=== PATIENT | female | born 1990 | race Caucasian/White ===

== ENCOUNTER → 2019-05-15 09:50 | Outpatient (BNVA) | payer BC, SELFPAY | PROVIDERS: Visit Provider Obstetrics & Gynecology Female Pelvic Medicine and Reconstructive Surgery | DX: Z11.3 Encounter for screening for infections with a predominantly sexual mode of transmission (principal); Z70.8 Other sex counseling | CPT/HCPCS: 81003; 87491; 87591; 88175 ==

== ENCOUNTER → 2020-08-15 10:40 | Outpatient (BNVA) | payer BC, SELFPAY | PROVIDERS: Visit Provider Nurse Practitioner Women's Health | DX: Z01.419 Encounter for gynecological examination (general) (routine) without abnormal findings (principal); Z11.3 Encounter for screening for infections with a predominantly sexual mode of transmission; Z30.9 Encounter for contraceptive management, unspecified | CPT/HCPCS: 87491; 87591; 87661; 88175 ==

== ENCOUNTER 2020-09-25 13:47 | Emergency (ER) | payer BC, SELFPAY ==
[2020-09-25 13:57] VITALS: BP 134/91; PULSE 83; RESP 19; TEMP 37.5; O2SAT 95; BMI 40.2
--- NOTE | 2020-09-25 14:48 | W.ED.EXTPRO ---
HPI - Extremity Problem General: Chief complaint: Extremity Injury, Lower Stated complaint: R heel pain Time Seen by Provider: 09/25/20 14:42 History of Present Illness: HPI Narrative: Patient is a 30-year-old female comes to the ED with right heel pain. Patient says that yesterday she was sliding down a water slide when she went into the pool it was, shallow and her right heel hit the concrete bottom. Since injury she has had pain in her right heel especially when she puts any weight on it. She says the pain is an 8 out of 10 when she puts weight on it and it is 0 out of 10 if she is at rest. Patient has full range of motion still throughout her foot and ankle. Denies any other injury. Associated symptoms: Deny chest pain, fever(s) or rash Review of Systems Const: Denies: fever(s), chills or fatigue Eyes: Denies: change in vision or eye discomfort ENMT: Denies: throat pain, odynophagia, nasal discharge or nasal congestion Card: Denies: chest pain, palpitations, edema, swelling of feet/ankles, dyspnea on exertion or orthopnea Resp: Denies: dyspnea, productive cough or non-productive cough GI: Denies: abdominal pain, nausea, vomiting, diarrhea, constipation or hematochezia : Denies: flank pain, dysuria or hematuria Musc: Reports: extremity pain (right heel); Denies: neck pain, back pain or extremity swelling Skin/Breast: Denies: rash or new lesions Neuro: Denies: headache(s), numbness in extremities or weakness in extremities [facility] ED PFSH: Medical History No pertinent past medical history neg hx: hypertension, diabetes, thyroid, DVT/PE PCP: none Surgical History No pertinent past surgical history Family History Mother Hypertension Denies family history of Colon cancer Ovarian cancer Diabetes Clotting disorder Heart disease Hyperlipidemia Breast cancer Anesthesia complication Family history of thyroid problem Bleeding disorder Uterine cancer Stroke Physical Exam Const: COMMON NORMALS: no acute distress, patient oriented x3, healthy appearing and alert HENMT: COMMON NORMALS: normocephalic HEAD & SCALP: normocephalic MOUTH: Normal oral and palatal mucosa present THROAT: posterior oropharynx normal and uvula midline Neck/C-Spine: COMMON NORMALS: supple GENERAL: Yes normal visual inspection Resp: COMMON NORMALS: normal respiratory effort, No retractions, No use of accessory muscles and clear to auscultation bilaterally AUSCULTATION: clear to auscultation bilaterally Cardio: COMMON NORMALS: regular rate, regular rhythm, S1 normal heart sound present, S2 normal heart sound present, No gallops present (Cardio), No clicks present (Cardio), No murmurs present (Cardio) and Peripheral pulses 2+ throughout RATE: regular rate RHYTHM: regular rhythm HEART SOUNDS: S1 normal heart sound present and S2 normal heart sound present PERIPHERAL PULSES: Peripheral pulses 2+ throughout GI: COMMON NORMALS: Normal to inspection, nondistended, normoactive bowel sounds present, Soft to palpation, non-tender and no masses PALPATION: Yes Soft to palpation : COMMON NORMALS: Yes no CVA tenderness BLADDER/KIDNEY EXAM: Yes no CVA tenderness Back/Pelvis: COMMON NORMALS: no CVA tenderness Extremity: NARRATIVE EXTREMITY EXAM: Right foot?no deformity or swelling seen. Patient had tenderness over heel. Neurovascular tact distally. GENERAL: Yes normal exam except as noted Neuro: COMMON NORMALS: patient oriented x3 and moves all extremities SENSORIUM/ORIENTATION: Yes alert Skin: GENERAL SKIN EXAM: dry skin Course Vital Signs: Vital signs: Vital Signs Temperature 99.5 F 09/25/20 13:57 Pulse Rate 83 09/25/20 13:57 Respiratory Rate 19 H 09/25/20 13:57 Blood Pressure 134/91 09/25/20 13:57 Pulse Oximetry 95 09/25/20 13:57 MDM - Extremity (Nontraumatic) Imaging Data^: Xray Ortho: Attestation: I personally reviewed and interpreted this imaging study as follows: Radiologist's impression: [address] [address] XRay Report Signed Patient: Karis Myles Unit #: [id number] : 1990 Age/Sex: 30 / F ADM Date: 09/25/20 Loc: ER Room/Bed: Attending Dr: Ordering Provider/Ordering MD: Jerson Evans Date of Service: 09/25/20 Procedure(s): XR foot RT min 3V* 46627 Accession Number(s): [id number] Report Number: [id number] WS: [id number] Right foot, 3 views, 09/25/2020 Clinical Data: heel injury with pain Comparison: None. Findings: No fractures or dislocations are seen. No bone destruction or erosion is noted. The joint spaces and soft tissues are normal. There is a plantar spur. XR/XR foot RT min 3V* [id number] Impression: Negative right foot. Dictated By: Merle Friedman MD Signed By: Merle Friedman MD Signed Date/Time: 09/25/201521 DD/ 20 Discharge Plan Discharge Patient Disposition: Home Clinical Impression: Contusion of right foot or heel Condition: Stable Prescriptions: New ibuprofen 800 mg tablet 800 mg PO Q8H PRN (Reason: pain) Qty: 20 RF: 0 No Action norgestimate-ethinyl estradiol [Sprintec (28)] 0.25-35 mg-mcg tablet 1 tab PO DAILY Qty: 84 RF: 3 Discharge Orders: Discharge ED (Routine); Ordered 09/25/20 Ordered By: Jerson Evans Discharge Diet: Regular Discharge Activity: Increase activity as tolerated and Use walker/crutches as instructed Patient Instructions: Foot Contusion (ED) Activity Restrictions/Additional Instructions: Follow-up with medical provider as directed in 7 to 10 days for reevaluation. Use crutches and limit weightbearing on right foot for the next 2 to 3 days and after that advance as tolerated. Rest, ice and elevate right foot as well. Take medications as prescribed. Return to the ER or your medical provider if condition worsens. Please read and understand discharge instructions. Thank you for choosing [facility] for your healthcare needs today. Please realize this is an emergency room and that we are providing you with a medical screening exam and this may not be complete and all inclusive of all the testing and or work up that you may need to determine your ailment or severity of your illness. It is very important that you follow up as instructed or that you return to the Emergency Department should you have concerns or if your condition changes or worsens in any way. Coding Level of Care Code ED It Program Auditor for Ingrid Fwd Exam Comprehensive
--- NOTE | 2020-09-25 15:07 | XR_ITS ---
WS: [id number] Right foot, 3 views, 09/25/2020 Clinical Data: heel injury with pain Comparison: None. Findings: No fractures or dislocations are seen. No bone destruction or erosion is noted. The joint spaces and soft tissues are normal. There is a plantar spur. XR/XR foot RT min 3V* [id number] Impression: Negative right foot.
[2020-09-25] MEDS: HYDROcodone-acetaminophen 5-325 mg Tablet 1 TAB PO (16:46)
== END 2020-09-25 16:54 | disposition home or self-care (01) ==
PROVIDERS: Emergency Provider Physician Assistant
DX: S90.31XA Contusion of right foot, initial encounter (principal); W22.8XXA Striking against or struck by other objects, initial encounter; Y93.11 Activity, swimming; Y92.838 Other recreation area as the place of occurrence of the external cause
CPT/HCPCS: 73630; 99283; E0114

== ENCOUNTER → 2020-10-03 10:57 | Outpatient (BNVA) | payer BC, SELFPAY | PROVIDERS: Visit Provider Obstetrics & Gynecology | DX: R87.810 Cervical high risk human papillomavirus (HPV) DNA test positive (principal); R87.610 Atypical squamous cells of undetermined significance on cytologic smear of cervix (ASC-US) | CPT/HCPCS: 81025; 88305 ==

== ENCOUNTER → 2021-09-08 09:26 | Outpatient (BNVA) | payer BC, SELFPAY | PROVIDERS: Visit Provider Nurse Practitioner Women's Health | DX: R87.610 Atypical squamous cells of undetermined significance on cytologic smear of cervix (ASC-US) (principal); R87.810 Cervical high risk human papillomavirus (HPV) DNA test positive; Z11.3 Encounter for screening for infections with a predominantly sexual mode of transmission | CPT/HCPCS: 86592; 86803; 87340; 87491; 87591; 87624; 87661; 87806 ==

== ENCOUNTER 2022-05-30 14:35 | Emergency (ER) | payer OTHER, SELFPAY ==
[2022-05-30 14:45] VITALS: BP 114/69; PULSE 67; TEMP 36.6; O2SAT 93; BMI 41.1
--- NOTE | 2022-05-30 14:48 | XRR_ITS ---
PROCEDURE INFORMATION: Exam: XR Left Ankle Exam date and time: 05/30/2022 2:58 PM Age: 32 years old Clinical indication: Injury or trauma; Fall; Blunt trauma; Ankle; Left TECHNIQUE: Imaging protocol: Radiologic exam of the left ankle. Views: 3 or more views. COMPARISON: No relevant prior studies available. FINDINGS: Bones/joints: Trimalleolar fracture seen about the left ankle. This includes displaced transverse fracture of the medial malleolus, oblique fracture of the distal left fibula or proximal lateral malleolus with [id number] cortical offset or deformity and without significant angulation, and nondisplaced posterior malleolar fracture with vertical orientation on the lateral view. AP and oblique views demonstrate abnormal appearance or displacement of the tibiotalar joint with more lateral position of the talus in relation to the tibia along with medial widening. Findings indicate associated ligamentous injury. Distal portion of the fracture of the proximal lateral malleolus is at the level of the ankle joint. Soft tissues: Soft tissue swelling, medial greater than lateral. XR/XR ankle LT min 3V* [id number] IMPRESSION: Trimalleolar fracture of the left ankle, as noted above, for follow-up orthopedic evaluation.
--- NOTE | 2022-05-30 15:33 | W.ED.EXTPRO ---
HPI - Extremity Problem General: Chief complaint: Extremity Injury, Lower Stated complaint: left ankle injury Time Seen by Provider: 05/30/22 15:23 History of Present Illness: 32-year-old female was walking down a hill lost her footing and had a tripping injury to her left ankle. This occurred at 1430 hrs. today. She says since that injury she has been unable to walk and so presented to the emergency department. She called home and her parents brought her to the ER via POV. No fevers, chills, knee pain, hip pain, head strike, other injuries or tender areas sustained during this event. Describes severe aching pain about her right ankle. Intact sensation and full ability to move the ankle. No change in coloration. PFS ED PFSH: Medical History No pertinent past medical history neg hx: hypertension, diabetes, thyroid, DVT/PE PCP: none Surgical History No pertinent past surgical history Family History Mother Hypertension Denies family history of Colon cancer Ovarian cancer Diabetes Heart disease Hyperlipidemia Breast cancer Family history of thyroid problem Uterine cancer Stroke Physical Exam Narrative: EXAM NARRATIVE: Obvious swelling and deformity with medial displacement of the ankle on exam and some medial malleoli or ecchymoses. Tenderness palpation diffusely throughout, no knee tenderness, no pain with syndesmotic squeeze, no pain in fifth metatarsal. Cap refill less than 2 seconds in great toe and pinky toe. Palpable dorsalis pedis pulse. Const: COMMON NORMALS: no acute distress and average body habitus HENMT: COMMON NORMALS: normocephalic and atraumatic HEAD & SCALP: normocephalic and atraumatic Eye: COMMON NORMALS: Equal, round and reactive pupils present and EOMs intact bilaterally PUPIL: Yes Equal, round and reactive pupils present Neck/C-Spine: COMMON NORMALS: full ROM and no lymphadenopathy Chest: COMMONS NORMALS: normal inspection of the chest Resp: COMMON NORMALS: normal respiratory effort and No retractions Cardio: COMMON NORMALS: regular rate and regular rhythm RATE: regular rate RHYTHM: regular rhythm Procedures Procedural Sedation ASA Class: I Time of Last PO Intake: 11:45 Preparation: antisqueak chalker applied, pulse oximeter, capnometry used, supplemental O2 applied, suction/airway equipment at bedside and IV secured Ketamine: IV (100mg) IV Propofol dose (mg): 30 Complications: none Interventions: airway repositioned Additional Comments: Uncomplicated sedation ASA class I, Mallampati 1 patient without any complications. Timeout to verify identity, site reduction, agents to be used, and weight of patient. Began by slow IV push of 100 mg ketamine. Patient had adequate sedation at this point time so held off on propofol and provided to 15 mg push doses of propofol during molding after reduction. Patient was on end-tidal capnography with respiratory therapy present at bedside. Patient was observed coming out of sedation, talking overall volition, controlling secretions. Uncomplicated sedation. Course Vital Signs: Vital signs: Vital Signs Temperature 97.9 F 05/30/22 14:45 Pulse Rate 66 05/30/22 16:34 Respiratory Rate 16 05/30/22 16:34 Blood Pressure 124/88 05/30/22 16:34 Pulse Oximetry 99 05/30/22 16:34 Oxygen Delivery Me thod 05/30/22 16:34 MDM - Extremity (Nontraumatic) Medical Decision Making 32-year-old female with multiple ankle fractures of the left ankle, neurovascularly intact. Vitals nonactionable. Pain controlled when not weightbearing and no examination in progress. Considered concomitant proximal fracture, knee fracture, hip injury, other sequelae of trauma. Examination not suggesting these concomitant or alternative injuries. X-ray demonstrating trimalleolar pattern of fracture. Dr. Diaz, on-call podiatry consulted for management of this patient. He presents bedside to assist in reduction. Procedural sedation conducted per note and podiatry reduces easily with reversal of injury mechanism. CT obtained for surgical planning and reexamination of the affected extremity with intact cap refill and sensation. No complications from sedation. Discharged with 10-day course of [place]. Lab Data Radiology Impressions Ankle X-Ray 05/30/22 16:14 IMPRESSION: Satisfactory alignment and position post reduction regarding fractures about the left ankle and ankle joint, with presence of posterior splint. Discharge Plan Discharge Clinical Impression: Closed trimalleolar fracture of left ankle Condition: Stable Prescriptions: New oxycodone 5 mg capsule 5 mg PO Q8H PRN (Reason: pain) Qty: 14 0RF No Action norgestimate-ethinyl estradiol [Sprintec (28)] 0.25-35 mg-mcg tablet 1 tab PO DAILY Qty: 84 3RF Discharge Diet: Advance as tolerated Discharge Activity: Limit activity as instructed Patient Instructions: Ankle Fracture (DC) Activity Restrictions/Additional Instructions: Take 1000 mg of Tylenol and 400 mg of Motrin at breakfast lunch and dinner for your pain. Additionally can take 1 tab oxycodone during this time for the pain. Coding Level of Care Code ED Application Architect for Ingrid Chavez
[2022-05-30 16:12] VITALS: BP 154/106; PULSE 67; RESP 19; O2SAT 98
--- NOTE | 2022-05-30 16:14 | XRR_ITS ---
PROCEDURE INFORMATION: Exam: XR Left Ankle Exam date and time: 05/30/2022 4:16 PM Age: 32 years old Clinical indication: Injury or trauma; Fall; Blunt trauma; Ankle; Left; Additional info: Post reduction TECHNIQUE: Imaging protocol: Radiologic exam of the left ankle. Views: 1 or 2 views. COMPARISON: CR (LOW EXM, ) 05/30/2022 2:58 PM FINDINGS: Tubes, catheters and devices: Exam labeled postreduction, with presence of overlying posterior splint. Satisfactory reduction of previously noted fractures and with improved alignment of the ankle joint, with satisfactory position. Bones/joints: See Tubes, catheters and devices finding. Soft tissues: Overlying splint. XR/XR ankle LT 2V [id number] IMPRESSION: Satisfactory alignment and position post reduction regarding fractures about the left ankle and ankle joint, with presence of posterior splint.
--- NOTE | 2022-05-30 16:18 | CTR_ITS ---
PROCEDURE INFORMATION: Exam: CT Left Lower Extremity Without Contrast, Ankle Exam date and time: 05/30/2022 4:57 PM Age: 32 years old Clinical indication: Injury or trauma; Fall; Fracture, traumatic; Closed fracture; Ankle; Left; Bimalleolar; Additional info: Pre op planning TECHNIQUE: Imaging protocol: CT of the left lower extremity without contrast was performed. Exam focused on the ankle. Radiation optimization: All CT scans at this facility use at least one of these dose optimization techniques: automated exposure control; mA and/or kV adjustment per patient size (includes targeted exams where dose is matched to clinical indication); or iterative reconstruction. REPORTING DATA: Count of CT and Cardiac NM exams in prior 12 months: This patient has received 0 known CTs and 0 known cardiac nuclear medicine studies in the 12 months prior to the current study. COMPARISON: CR XR ankle LT 2V [id number] 05/30/2022 4:16 PM RADIATION DOSE METRICS: Total DLP (mGy-cm): 159.29 FINDINGS: Bones/joints: Transverse fracture of the medial malleolus with approximately 3 mm separation of the fracture site and approximally 2 mm medial displacement of the distal fracture fragment on the coronal images. There is associated mild widening of the medial aspect of the tibiotalar joint indicating ligamentous injury. A spiral or oblique fracture seen within the distal fibula or proximal lateral malleolus with mild complex appearance of the fracture along the distal medial aspect of the level of the ankle joint on the coronal images. Mild cortical offset at the proximal and distal aspect of the fractures. Fracture fragment distally appears adjacent to the joint space, though not significantly displaced into the joint space. An avulsion fracture from the tip of the lateral malleolus is also seen. A fracture seen through the posterior distal tibia or posterior malleolus, with vertical fracture line on the sagittal images and small fragmentation of the distal fracture adjacent to the joint space. This fracture is associated with slight cortical offset without significant displacement, otherwise. Calcaneal spur or enthesophyte is seen. Soft tissues: Soft tissue stranding and soft tissue edema is seen, secondarily. CT/CT ankle LT wo con* [id number] IMPRESSION: Trimalleolar fracture of the left ankle, as noted above, with mild disruption of the medial aspect of the tibiotalar joint indicating associated ligamentous injury. Associated soft tissue swelling and edema noted.
--- NOTE | 2022-05-30 16:23 | P.CONIM_ITS ---
Providers/Reason For Consult Consulting Physician/Specialty*: Chong Fountain.PMaribellMMariebll Reason for Consult*: Left ankle trimalleolar fracture dislocation History of Present Illness History of Present Illness Karis Myles is a 32 year old female who presented to the emergency department today 05/30/2022 with chief complaint of left ankle pain. Upon further examination patient was found to have sustained left ankle trimalleolar fracture. Patient states that she was walking this afternoon from [employer] when she stepped on wet grass and slipped and fell down the hill rolling her ankle. After experiencing the pain she was brought to the emergency department for further work-up and evaluation. Patient does not take any daily medications and states that she is otherwise healthy. I was consulted to come evaluate and aid in bedside reduction in the emergency department. Review of Systems General: Reports: 10 or more systems reviewed and unremarkable except in HPI and below Const: Denies: fever(s), chills or fatigue Eyes: Denies: change in vision ENMT: Denies: sinus pain Card: Denies: chest pain, palpitations or lightheadedness Resp: Denies: dyspnea GI: Denies: abdominal pain, nausea or vomiting Musc: Reports: extremity pain, extremity swelling and limited range of motion; Denies: neck pain or back pain Skin/Breast: Reports: skin swelling Neuro: Denies: numbness in extremities Medications/Allergies Home Medications Medication Instructions Recorded Confirmed Last Taken Type norgestimate 0.25 mg-ethinyl 1 tab PO DAILY #84 tabs 09/08/21 09/08/21 Unknown Rx estradiol 35 mcg tablet (Sprintec (28)) Allergies Allergy/AdvReac Type Severity Reaction Status Date / Time No Known Allergies Allergy Verified 09/08/21 08:40 PFSH Acute PFSH: Medical History No pertinent past medical history neg hx: hypertension, diabetes, thyroid, DVT/PE PCP: none Surgical History No pertinent past surgical history Family History Mother Hypertension Denies family history of Colon cancer Ovarian cancer Diabetes Heart disease Hyperlipidemia Breast cancer Family history of thyroid problem Uterine cancer Stroke Vitals/I&O/Wt Last Vital Signs Temp 97.9 F 05/30/22 14:45 Pulse 67 05/30/22 16:12 Resp 19 H 05/30/22 16:12 BP 154/106 05/30/22 16:12 Pulse Ox 93 05/30/22 14:45 O2 Del Method 05/30/22 16:12 Weight last 48 hrs Weight 225 lb Physical Exam Narrative: BELOW IS A FOCUSED LOWER EXTREMITY EXAM GENERAL: A&O x 3 VASCULAR: DP/PT pulses palpable 2/4 with CFT intact, <3seconds to distal digits, edema to left ankle consistent with posttraumatic state DERMATOLOGICAL: Skin turgor and temperature is within normal limits. No open wounds or skin lesions noted. Nails are well manicured and normotrophic. No interdigital maceration noted. MUSCULOSKELETAL: Tenderness with palpation to left ankle. Full musculoskeletal exam deferred secondary to posttraumatic state NEUROLOGICAL: Neurological sensation to the affected foot and ankle is present through L4-S1 dermatomes with no hyper/hypoesthesias, negative Tinel or Valleix's sign Data Other Xray: My impression: IMAGIN views of the left ankle taken in the emergency department nonweightbearing, person interpreted by me which show lateral displacement of the talus within the mortise with transverse medial malleolus fracture and lateral displacement of the distal fragment. Oblique fibular fracture with posterior spike and lateral displacement of distal fibula. Lateral projection shows posterior malleolus fragment with minimal displacement. Postreduction films 2 views of left ankle personally interpreted by me which show anatomic reduction of the talus within the mortise with reduction of medial malleolus and distal fibula. Posterior malleolus fragment remains anatomical with minimal displacement A&P Assessment and plan (1) Closed trimalleolar fracture of left ankle: (2) Pain in left ankle: Plan -Patient was seen and evaluated -Patient vitals and imaging were reviewed by me -Discussed with patient that she has sustained a left trimalleolar ankle fracture and this will necessitate open reduction internal fixation. Discussed timing with the patient and this will likely be after soft tissue swelling has calm down in the next 1 to 2 weeks. I discussed with her that she will need to undergo close reduction of ankle fracture in the emergency department today. Patient was agreeable to this plan -Both written and verbal consent were obtained for sedation with left ankle closed reduction. After sedation was administered by the ER physician with respiratory therapy present, the left ankle was manually manipulated into its anatomical position. It was then splinted using Ortho-Glass and sugar-tong splint fashion. Postreduction x-rays were obtained and showed good anatomic reduction of the fracture. Capillary refill was brisk to distal digits after reduction -CT scan left ankle obtained to assess fracture pattern for surgical planning -Patient is to be strict nonweightbearing to the left lower extremity using crutches -[place] 5-325 mg for pain control -My office will contact the patient tomorrow morning 05/31/2022 to set up an outpatient follow-up visit to discuss surgical intervention Consult Attestations Medical Necessity Statement: Left ankle trimalleolar ankle fracture needing bedside closed reduction Coding Level of Care Code Acute Code for Chg Fwd Diagnoses Closed trimalleolar fracture of left ankle S82.852A Pain in left ankle M25.572
[2022-05-30] MEDS: ondansetron 2 mg/ML SDV 2 mL 8 MG IVP (16:24)
[2022-05-30] MEDS: ketamine 100 mg/mL Inj 5 mL 80 MG IV (16:26)
--- NOTE | 2022-05-30 16:27 | PC.NURSE ---
100 mg ketamine given at 1600 slow IV push per Dr. Mir 1605 15 mg propofol given slow iv push 1610 15 mg propofol given slow IV push Dr Mir and ortho physician at bedside. ankle reduced pt tolerated procedure well, VSS throughout. splint placed.
[2022-05-30 16:34] VITALS: BP 124/88; PULSE 66; RESP 16; O2SAT 99
[2022-05-30 17:27] VITALS: BP 118/86; PULSE 73; RESP 21; O2SAT 99
--- NOTE | 2022-06-09 13:56 | DCPLANNER ---
search engine optimization manager called patient due to no primary care physician - patient declines at this time
== END 2022-05-30 17:30 | disposition home or self-care (01) ==
PROVIDERS: Emergency Provider General Practice
DX: S99.912A Unspecified injury of left ankle, initial encounter (principal); S82.852A Displaced trimalleolar fracture of left lower leg, initial encounter for closed fracture; W01.0XXA Fall on same level from slipping, tripping and stumbling without subsequent striking against object, initial encounter
CPT/HCPCS: 27818; 73600; 73610; 73700; 96374; 99152; 99285; J2405; J3490

== ENCOUNTER 2022-06-10 06:54 | Day surgery (SDC) | payer OTHER, SELFPAY ==
[2022-06-10] VITALS (10 sets, daily range): BP systolic 112–134; BP diastolic 71–81; PULSE 77–108; RESP 16–18; TEMP 36.1–36.9; O2SAT 92–100
--- NOTE | 2022-06-10 07:16 | ANES.PREANE2 ---
Pre-Anesthetic Assessment Height/Weight: Height 1.57 m Weight 102.058 kg Operation Date: 06/10/22 08:20 Proposed Procedures p ?ORIF left trimalleolar fracture CPT 50679,:?S82.852A(Left) - Arvind Diaz DPM Familial anesthetic complications: None Was Beta Rajan taken within 24 hours: N/A Was Clonidine taken within 24 hours: N/A Last intake: > 8hrs Social No alcohol and No tobacco Exam alert, oriented x 3, clear to auscultation bilaterally and regular rate & rhythm Airway Mallampati: Class III Dentition: full Metabolic Morbid Obesity Anesthetic Plan ASA status: 2 Anesthesia: General Risk of > 500 ml blood loss (7ml/kg in children): No Medications/Allergies Home Medications Medication Instructions Recorded Confirmed Last Taken Type norgestimate 0.25 mg-ethinyl 1 tab PO DAILY #84 tabs 09/08/21 06/09/22 06/09/22 Rx estradiol 35 mcg tablet (Sprintec (28)) Allergies Allergy/AdvReac Type Severity Reaction Status Date / Time No Known Allergies Allergy Verified 06/09/22 13:12 [facility] Anesthesia Medical History No pertinent past medical history neg hx: hypertension, diabetes, thyroid, DVT/PE PCP: none Surgical History No pertinent past surgical history Family History Mother Hypertension Denies family history of Colon cancer Ovarian cancer Diabetes Heart disease Hyperlipidemia Breast cancer Family history of thyroid problem Uterine cancer Stroke Female Reproductive History Date of last menstrual period: 05/12/22 Data Anesthesia Cardiac Studies: No Data to Display
[2022-06-10] MEDS: acetaminophen 1,000 MG/100 ML PIGGYBACK 400 MG IV (07:50)
[2022-06-10] MEDS: sodium chloride 0.9% 1,000 ML 30 ML IV (07:50)
[2022-06-10] MEDS: gabapentin 300 mg Capsule PO (07:51)
--- NOTE | 2022-06-10 08:13 | ANES.PROC ---
Anesthesia Procedures Procedure/Date: 06/10/22 Nerve Block ^: Nerve Block 1: Main Anesthesia: general anesthesia Time Out Performed: Yes Consent: requested by attending/covering physician, from patient, risks and benefits reviewed and patient agrees to proceed Nerve block location: adductor canal and popliteal (L) Anesthesia monitors applied: pulse oximetry Nerve block position: supine Anesthetic Used: ropivicaine 0.5% (30 ml) and with decadron (4 mg) Ultrasound used to: recognize landmarks Nerve Stimulator Used?: No Interscalene/Femoral BLK: 4 stimuplex 21 g needle used for position and inplane approach, visualize local anesthetic spread and no vascular puncture identified Injection: neg aspiration of heme Patient Tolerated Procedure: well Complications: none
--- NOTE | 2022-06-10 09:14 | W.PM.OPSUD ---
Surgery/Procedure H&P Update DATE OF PROCEDURE: June 10, 2022 DATE H&P PERFORMED: 06/01/22 CHANGES TO PREVIOUS DOCUMENTATION: No changes PREOP DIAGNOSIS: left trimalleolar ankle fracture PLANNED PROCEDURE: Operation Date: 06/10/22 08:20 Proposed Procedures p ?ORIF left trimalleolar fracture CPT 31527,:?S82.852A(Left) - Arvind Diaz DPM
[2022-06-10] MEDS: ceFAZolin 2,000 MG in sodium chloride 0.9% (plus) 50 ML 100 MG IV (09:31)
--- NOTE | 2022-06-10 12:03 | XR_ITS ---
WS: [id number] XR ankle LT 1V [id number] REASON FOR EXAM: OR PICS FINDINGS: Complex fracture dislocation of the ankle 05/30/2022. Long screw fixation of medial malleolar fracture. Plate and screw fixation of posterior malleolar fracture. Plate and screw fixation of spiral fracture of the distal fibula. The ankle mortise is restored. The surgical appliances are intact and in proper position and alignment. Fracture fragments are in go od position and alignment. XR/XR ankle LT 1V [id number] IMPRESSION: Complex left ankle fracture dislocation with internal fixation as above.
--- NOTE | 2022-06-10 12:17 | XR_ITS ---
WS: [id number] XR ankle LT min 3V* [id number] REASON FOR EXAM: Post op FINDINGS: Plate and screw fixation of comminuted spiral fracture of the distal. Long oblique screw fixation of oblique medial malleolar fracture. Plate and screw fixation of posterior malleolar fracture. Ankle mortise intact. Surgical appliances and fracture fragments are in proper position and alignment and unchanged compare d to the intraoperative images of earlier today. XR/XR ankle LT min 3V* [id number] IMPRESSION: Stable complex ankle fracture with internal fixation.
[2022-06-10] MEDS: meperidine 50 mg/mL INJ 12.5 MG IVP (12:40)
--- NOTE | 2022-06-10 13:36 | ANE.PACU2 ---
Inpatient post-anesthesia follow up: Airway intact: Yes Vital signs: Temperature 98.4 F Pulse Rate 81 Respiratory Rate 16 Blood Pressure 112/72 Pulse Oximetry 92 Oxygen Delivery Me thod Nasal Cannula Oxygen Flow Rate 2 Fraction of Inspir ed Oxygen Hydration adequate: Yes Nausea and vomiting: No Pain level: 1 Mental status: Baseline
[2022-06-10] MEDS: HYDROcodone-acetaminophen 10-325 mg Tablet 1 TAB PO (13:38)
--- NOTE | 2022-06-10 19:00 | PM.OP ---
Operative Report Date of procedure: June 10, 2022 Pre-op diagnosis: Preop Diagnosis left trimalleolar ankle fracture Post-op diagnosis: Same Post-op findings: Left trimalleolar ankle fracture reduced well Procedure done: ORIF left trimalleolar fracture with posterior lip CPT 89737 Implants: Straight plate, T plate, 2.7 locking and nonlocking screws and two 4.0 cannulated screws all from [employer] Surgeon: Dr. Arvind Diaz, D.P.M. Estimated blood loss: Less than 10 cc 108 minutes Complications: None Findings: See above Brief History: Patient is a 32-year-old female that has a history of left trimalleolar ankle fracture. The inherent stability of the fracture pattern warrants open reduction internal fixation.. A lengthy discussion regarding the procedure, including risks and complications has been had with the patient and is noted in the recent clinic note. Written and verbal consent have been obtained. All patient questions have been answered to the patient?s satisfaction. No written or verbal guarantees have been given or implied. The patient has been NPO since midnight. The history has been reviewed and the history and physical is current. The signed consent was confirmed and placed in the patient chart. Patient imaging has been reviewed and is consistent with the diagnosis. Under mild sedation, the patient was brought into the operating room and placed on the table in the prone position. IV antibiotics were given by the anesthesia team as preoperative surgical prophylaxis. General sedation was then performed by the anesthesiateam. A pneumatic tourniquet was then placed about the left thigh. The operative extremity was then prepped and draped in the usual fashion. The extremity was then elevated and exsanguinated before the tourniquet was inflated to 325 mmHg. After inflation, the following procedure was then performed. Attention was directed to the posterior lateral aspect of the left ankle where a 10 cm incision was made in between the interval between the Achilles tendon and the posterior fibula. Dissection was carried down through subcutaneous and superficial fascia. The sural nerve was identified and retracted out of the operative field. The fascia overlying the peroneal tendons was incised and the peroneal tendons were retracted laterally. The FHL was incised off the fibula and reflected medially. The posterior tibia was exposed and the fracture was visualized. The posterior malleolus fracture fragment was cleared of hematoma using a rongeur, dental pick and curette. Fracture fragment was then manually reduced and temporarily fixated with guidewires. Next a T plate from [employer] was used to fixate the fracture in buttress fashion. Good position of the plate was noted on C-arm imaging as well as clinically. Attention was then directed to the posterior aspect of the fibula where the fibular fracture was visualized. Hematoma was removed using rongeur and curette. The fibular fracture was reduced into anatomic position before being temporarily fixated with guidewires. Next a straight plate from [employer] was used to maintain reduction by being placed on the posterior aspect of the fibula. Good position of the plate and screws was noted on C-arm imaging as well as clinically. At this point the incision was irrigated with copious amounts of sterile saline before attention was directed to closure. Deep tissue was closed with 2-0 Vicryl followed by subcuticular closure with 3-0 Vicryl and skin closure with skin wade. The tourniquet was let down and good hyperemic response noted to all digits of the left foot. Patient was then transferred to the [facility] before being placed on the operating table in the supine position. The left lower extremity was then prepped and draped in the standard fashion. The tourniquet was then reinflated to 325 mmHg. A 5 cm incision was made over the medial malleolus. Dissection was carried down through subcutaneous and superficial fascia to the level of the medial malleolus. The fracture was visualized and was cleaned out using a combination of curette and rongeur. The medial malleolar fracture fragment was then reduced and temporally fixated with guidewires for 4 to 4.0 cannulated screws were inserted across the fracture site. Good positioning of the screws was noted on C-arm imaging as well as clinically. The incision was irrigated with copious amounts of sterile saline before attention was directed to closure. Deep tissue was closed with 2-0 Vicryl followed by subcuticular closure with 3-0 Vicryl and skin closure with skin wade. The tourniquet was let down and good hyperemic response was noted to all digits of the left foot. Incision site was dressed with Xeroform, 4 x 4 gauze, Kerlix before being placed in a well-padded below the knee posterior splint. The patient tolerated the procedure and anesthesia well and without complication. The patient was transported from the operating room to the recovery room with vital signs stable and vascular status intact to all digits of the left foot. The patient was given both written and verbal instructions to remain strict nonweightbearing to the operative extremity, to keep dressings/splint clean, dry and intact and to take pain medication as directed. The patient will follow-up in the outpatient setting at their scheduled appointment. The patient was discharged with my personal number and was instructed to call if any questions or issues should arise. They were discharged home once anesthesia criteria was met.
== END 2022-06-10 14:00 | disposition home or self-care (01) ==
PROVIDERS: Visit Provider Podiatrist Foot & Ankle Surgery
PROC: (CPT 27823; principal; 2022-06-10 08:10)
DX: S82.852A Displaced trimalleolar fracture of left lower leg, initial encounter for closed fracture (principal); E66.01 Morbid (severe) obesity due to excess calories; Z68.41 Body mass index [BMI] 40.0-44.9, adult; W19.XXXA Unspecified fall, initial encounter
CPT/HCPCS: 27823; 73600; 73610; 76000; C1713 ×2; C1773; J0131; J0690; J1100; J2175; J2405; J2704; J2795; J3010; J3490; J7030

== ENCOUNTER → 2022-06-24 13:06 | Outpatient (BNVA) | payer OTHER, SELFPAY | PROVIDERS: Visit Provider Podiatrist Foot & Ankle Surgery | DX: Z98.890 Other specified postprocedural states (principal); S82.852D Displaced trimalleolar fracture of left lower leg, subsequent encounter for closed fracture with routine healing; X58.XXXD Exposure to other specified factors, subsequent encounter; Z48.89 Encounter for other specified surgical aftercare | CPT/HCPCS: 73610 ==

== ENCOUNTER 2022-07-06 16:10 | Outpatient (CLI) | payer OTHER, SELFPAY | END 2022-07-06 16:11 | disposition home or self-care (01) | LOC: SPT 16:10 | PROVIDERS: Visit Provider Podiatrist Foot & Ankle Surgery | DX: Z46.89 Encounter for fitting and adjustment of other specified devices (principal); S82.852D Displaced trimalleolar fracture of left lower leg, subsequent encounter for closed fracture with routine healing; X58.XXXD Exposure to other specified factors, subsequent encounter | CPT/HCPCS: 97760; L4361 ==

== ENCOUNTER → 2022-07-21 14:46 | Outpatient (BNVA) | payer OTHER, SELFPAY | PROVIDERS: Visit Provider Podiatrist Foot & Ankle Surgery | DX: M25.572 Pain in left ankle and joints of left foot (principal); Z98.890 Other specified postprocedural states | CPT/HCPCS: 73610 ==

== ENCOUNTER 2022-08-03 11:12 | Outpatient (CLI) | payer OTHER, SELFPAY | END 2022-08-03 11:13 | disposition home or self-care (01) | LOC: SPT 11:13 | PROVIDERS: Visit Provider Podiatrist Foot & Ankle Surgery | DX: Z46.89 Encounter for fitting and adjustment of other specified devices (principal); S82.852D Displaced trimalleolar fracture of left lower leg, subsequent encounter for closed fracture with routine healing; X58.XXXD Exposure to other specified factors, subsequent encounter | CPT/HCPCS: 97760; L1902 ==

== ENCOUNTER 2022-08-06 11:29 | Outpatient (RCR) | payer OTHER, SELFPAY | END 2022-09-03 23:59 | disposition home or self-care (01) | LOC: SPT 11:29 | PROVIDERS: Visit Provider Podiatrist Foot & Ankle Surgery | DX: S82.852D Displaced trimalleolar fracture of left lower leg, subsequent encounter for closed fracture with routine healing (principal); X58.XXXD Exposure to other specified factors, subsequent encounter | CPT/HCPCS: 97110; 97161 ==

== ENCOUNTER 2022-09-04 06:00 | Outpatient (RCR) | payer OTHER, SELFPAY | END 2022-09-17 23:59 | disposition home or self-care (01) | LOC: SPT 06:00 | PROVIDERS: Visit Provider Podiatrist Foot & Ankle Surgery | DX: S82.852D Displaced trimalleolar fracture of left lower leg, subsequent encounter for closed fracture with routine healing (principal); X58.XXXD Exposure to other specified factors, subsequent encounter | CPT/HCPCS: 97110 ==

== ENCOUNTER → 2022-09-09 09:30 | Outpatient (BNVA) | payer OTHER, SELFPAY | PROVIDERS: Visit Provider Nurse Practitioner Women's Health | DX: R87.810 Cervical high risk human papillomavirus (HPV) DNA test positive (principal); R87.610 Atypical squamous cells of undetermined significance on cytologic smear of cervix (ASC-US) | CPT/HCPCS: 87624 ==